=== PATIENT | male | born 1950 | race Caucasian/White ===

== ENCOUNTER 2017-12-31 18:13 | Inpatient (IN) ==
--- NOTE | 2017-12-31 19:11 | XR ---
EXAM DATE: 12/31/2017 6:43 PM EDT AGE/SEX: 67 years / Male INDICATIONS: Short of breath CLINICAL DATA: This is the patient's initial encounter. Patient reports that signs and symptoms have been present for 1 day and indicates a pain score of 0/10. MEDICAL/SURGICAL HISTORY: Non-responsive. Non-responsive. [place] [facility] [place]. . FINDINGS: The lungs are hyperinflated. A focal area of alveolar consolidation is not seen. There is some mild i ncrease interstitial markings seen in the mid lungs. This could be chronic. The heart size is normal. Significant effusions are not seen. CONCLUSION: Hyperinflated lungs. Electronically signed by: Nick Quiroz MD 12/31/2017 7:09 PM EDT
[2017-12-31 19:22] LABS: Baso % (Auto) 0.1 % (0.0-2.0); Hemoglobin 12.4 gm/dL (13.0-17.0); Lymph # (Auto) 0.1 th/mm3 (1.0-4.8); Lymph % (Auto) 1.8 % (9.0-44.0); Mean Corpuscular Hemoglobin 30.2 pg (27.0-34.0); Mean Corpuscular Volume 97.6 fL (80.0-100.0); Mean Platelet Volume 9.9 fL (7.0-11.0); Mono # (Auto) 0.7 th/mm3 (0.0-0.9); Mono % (Auto) 8.9 % (0.0-8.0); Neut # (Auto) 7.4 th/mm3 (1.8-7.7); Neut % (Auto) 89.2 % (16.0-70.0); Platelet Count 218 th/mm3 (150-450); Red Cell Distribution Width 13.7 % (11.6-17.2); White Blood Count 8.3 th/mm3 (4.0-11.0)
[2017-12-31 19:27] LABS: Mean Corpuscular HGB Conc 30.9 % (32.0-36.0)
[2017-12-31 19:29] LABS: Bilirubin,Urine Negative (Negative); Clarity,Urine Clear (Clear); Color,Urine Yellow (Yellw/Straw); Glucose,Urine (UA) Negative (Negative); Hyaline Casts,Urine 3 /lpf (0-3); Leukocyte Esterase,Urine Negative (Negative); Mucus,Urine Few /lpf (Occasional); Nitrite,Urine Negative (Negative); Specific Gravity,Urine 1.014 (1.002-1.035); Squamous Epithelial Cell,Urine <1 /hpf (0-5)
--- NOTE | 2017-12-31 19:37 | ED ---
HPI General Chief complaint: Respiratory Symptoms Stated complaint: SOB Time Seen by Provider: 12/31/17 18:43 History of Present Illness HPI narrative: 67-year-old male with a history of COPD, CHF, hypertension, anxiety, depression is brought to the emergency department from [facility] facility for evaluation of altered mental status and shortness of breath. Per EMS report [facility] staff called EMS with complaint of altered mental status. Per EMS report the patient's Xanax prescription dose was increased today and he has had increased lethargy and fatigue which is why the staff called. The patient is complaining of worsening shortness of breath over the past 3-4 days and he requested EMS to bring him to the hospital for evaluation. The patient is chronically on 3 L of oxygen therapy due to severe COPD. He does state that he is having worse shortness of breath than he typically does and feels dehydrated. He is awake, alert and oriented x4. He denies any chest pain, lightheadedness, dizziness, nausea, vomiting, swelling of the extremities, abdominal pain, fever, chills, cough or cold symptoms. No other complaints. Related Data Home Medications Medication Instructions Recorded Confirmed acetaminophen [Pain Relief 8HR] 650 mg PO Q4H PRN 12/31/17 12/31/17 albuterol sulfate 2.5 mg INHALATION Q6H PRN 12/31/17 12/31/17 alprazolam [Xanax] 0.5 mg PO Q6H PRN 12/31/17 12/31/17 ascorbic acid (vitamin C) [Vitamin 500 mg PO DAILY 12/31/17 12/31/17 C] aspirin 325 mg PO DAILY 12/31/17 12/31/17 bisacodyl [Dulcolax (bisacodyl)] 10 mg MD DAILY PRN 12/31/17 12/31/17 diphenhydramine HCl [Benadryl] 25 mg PO Q4-6H PRN 12/31/17 12/31/17 ipratropium-albuterol 3 ml INHALATION Q6-8H PRN 12/31/17 12/31/17 levothyroxine [Synthroid] 25 mcg PO DAILY 12/31/17 12/31/17 losartan 25 mg PO DAILY 12/31/17 12/31/17 mirtazapine 15 mg PO DAILY 12/31/17 12/31/17 nystatin 1 applic TOPICAL BID 12/31/17 12/31/17 potassium chloride 10 meq PO DAILY 12/31/17 12/31/17 prednisone 10 mg PO DAILY 12/31/17 12/31/17 vit A palm,D3 in cod liver oil 1 tab PO DAILY 12/31/17 12/31/17 [Cod Liver Oil plus Umer and D3] Allergies Allergy/AdvReac Type Severity Reaction Status Date / Time metoprolol Allergy Unknown Bradycardia Unverified 11/04/16 20:03 Review of Systems ROS: all other systems reviewed are negative [facility] Social History Social History Smoking Status: Former smoker How Often Do You Have a Drink Containing Alcohol: Never Recent Travel in [facility] within the Last 8 Weeks: No Recent Out of Country Travel within the Last 8 Weeks: No Immunization History Tetanus Immunization: Unsure Exam Narrative Exam Narrative: GENERAL: Cachectic chronically ill appearing male patient in no acute distress. SKIN: Warm and dry. HEAD: Normocephalic and atraumatic. EYES: No injection, drainage, or hyphema noted. PERRLA. EOMI. ENT: No nasal drainage noted. Oropharynx is clear. NECK: Supple and the trachea is midline. CARDIOVASCULAR: Regular rate and rhythm. RESPIRATORY: Breath sounds are equal bilaterally with no accessory muscle use, wheezing, rhonchi, or crackles. GASTROINTESTINAL: Abdomen is soft, non-tender, and nondistended. MUSCULOSKELETAL: No obvious deformities, swelling, cyanosis, or ecchymosis is present throughout the upper and lower extremities. Patient has full range of motion without any signs of neurovascular compromise. Distal pulses are 2+ throughout. NEUROLOGICAL: Awake, alert, and oriented. Normal speech and gait. Cranial nerves are grossly intact. Course Initial Documented Vital Signs Temperature 98.1 F 12/31/17 18:40 Pulse Rate 96 H 12/31/17 18:40 Respiratory Rate 21 12/31/17 18:40 Blood Pressure 183/74 H 12/31/17 18:40 Pulse Oximetry 96 12/31/17 18:40 Last Documented Vital Signs Temperature 98.6 F 01/02/18 08:00 Pulse Rate 66 01/02/18 08:00 Respiratory Rate 10 L 01/02/18 08:00 Blood Pressure 85/46 L 01/02/18 08:00 Pulse Oximetry 100 01/02/18 08:00 Critical Care Time Critical Care Time: Yes Total Critical Care Time: 35 Attestation: Aggregate critical care time was [-] minutes. Time to perform other separately billable procedures was not included in the critical care time. My time did not include minutes spent treating any other patients simultaneously or on activities that did not directly contribute to the patient' s treatment. The services I provided to this patient were to treat and/or prevent clinically significant deterioration that could result in: Respiratory arrest, I provided critical care services requiring my management, as noted below: Chart data review, documentation time, medication orders and management, vital sign assessments/reviewing monitor data, ordering and reviewing lab tests, ordering and interpreting/reviewing x-rays and diagnostic studies, care of the patient and discussion of the patient with the admitting physicians. Medical Decision Making MDM Narrative Medical decision making narrative: 67-year-old male is brought to the emergency department from his senior care facility for evaluation of worsening shortness of breath over the last 3-4 days. Patient is afebrile, vital signs are stable. IV access is obtained, labs were drawn throat. Patient is placed on cardiac telemetry and pulse oximetry monitoring. Patient administered DuoNeb x1. CBC is unremarkable. Coags are unremarkable. CMP is unremarkable. Troponin is less than 0.02. Urinalysis unremarkable. Head CT is negative. Chest x-ray shows hyperinflated lungs, otherwise unremarkable. Patient reassessed and he is still reporting dyspnea. He does appear to now have some work of breathing that was not present on earlier evaluation. CTPA and abg ordered. Abg shows uncompensated respiratory acidosis with CO2 retention. Patient placed on bipap. Care of patient signed out to Dr. Sanchez my attending physician. 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 Medical Screen Exam Complete: Yes Emergency Medical Condition: Yes Differential Diagnosis Differential Diagnosis: COPD exacerbation versus pneumonia versus CHF exacerbation versus PE Lab Data Result diagrams: 12/31/17 18:45 12/31/17 18:45 Lab Results 12/31/17 12/31/17 12/31/17 Range/Units 18:45 18:45 18:45 WBC 8.3 (4.0-11.0) th/mm3 RBC 4.10 L (4.50-5.90) mil/mm3 Hgb 12.4 L (13.0-17.0) gm/dL Hct 40.0 (39.0-51.0) % MCV 97.6 (80.0-100.0) fL MCH 30.2 (27.0-34.0) pg MCHC 30.9 L (32.0-36.0) % RDW 13.7 (11.6-17.2) % Plt Count 218 (150-450) th/mm3 MPV 9.9 (7.0-11.0) fL Neut % (Auto) 89.2 H (16.0-70.0) % Lymph % (Auto) 1.8 L (9.0-44.0) % [place] % (Auto) 8.9 H (0.0-8.0) % Eos % (Auto) 0.0 (0.0-4.0) % Baso % (Auto) 0.1 (0.0-2.0) % Neut # (Auto) 7.4 (1.8-7.7) th/mm3 Lymph # (Auto) 0.1 L (1.0-4.8) th/mm3 [place] # (Auto) 0.7 (0.0-0.9) th/mm3 Eos # (Auto) 0.0 (0.0-0.4) th/mm3 Baso # (Auto) 0.0 (0.0-0.2) th/mm3 WBC Differential . Differential Comment Auto diff final PT 10.1 (9.8-11.6) sec INR 1.0 Ratio APTT 26.8 (24.3-30.1) sec Puncture Site Patient Temperature O2 Saturation (90-100) % ABG pH (7.380-7.420) ABG pCO2 (38-42) mmHg ABG pO2 (61-120) mmHg ABG HCO3 (22-26) mmol/L ABG O2 Content (12.0-20.0) Vol % ABG Base Excess (-2-2) mmol/L ABG Methemoglobin (0-2) % Randy Test Hemoglobin (12.0-16.0) G/DL Carboxyhemoglobin (0-4) % O2 Delivery Device Liter Flow L/M Vent Setting Inspired O2 % Critical Value Sodium 135 L (136-145) meq/L Potassium 5.1 (3.5-5.1) meq/L Chloride 91 L (98-107) meq/L Carbon Dioxide 39.9 H (21.0-32.0) meq/L Anion Gap 4 L (5-15) meq/L BUN 25 H (7-18) mg/dL Creatinine 0.64 (0.60-1.30) mg/dL Estimated GFR Greater than 89 (>89) mL/min Random Glucose 103 (74-106) mg/dL Calcium 9.4 (8.5-10.1) mg/dL Total Bilirubin 0.3 (0.2-1.0) mg/dL AST 23 (15-37) U/L ALT 27 (12-78) U/L Alkaline Phosphatase 67 (45-117) U/L Troponin I Less than 0.02 L (0.02-0.05) ng/mL B-Natriuretic Peptide (0-100) pg/mL Total Protein 7.7 (6.4-8.2) g/dL Albumin 3.6 (3.4-5.0) g/dL Urine Color (Yellw/Straw) Urine Clarity (Clear) Urine pH (5.0-8.5) Ur Specific [place] (1.002-1.035) Urine Protein (Neg-Trace) mg/dL Urine Glucose (UA) (Negative) mg/dL Urine Ketones (Negative) mg/dL Urine Occult Blood (Negative) Urine Nitrate (Negative) Urine Bilirubin (Negative) Urine Urobilinogen (Less than 2) mg/dL Ur Leukocyte Esterase (Negative) Urine RBC (0-3) /hpf Urine WBC (0-5) /hpf Ur Squamous Epith Cells (0-5) /hpf Hyaline Casts (0-3) /lpf Urine Mucus (Occasional) /lpf Micro UA Comment Ur Microscopic Review Urine Culture Comments Nasal Screen MRSA (PCR) (Negative) 12/31/17 12/31/17 12/31/17 Range/Units 18:45 18:51 21:50 WBC (4.0-11.0) th/mm3 RBC (4.50-5.90) mil/mm3 Hgb (13.0-17.0) gm/dL Hct (39.0-51.0) % MCV (80.0-100.0) fL MCH (27.0-34.0) pg MCHC (32.0-36.0) % RDW (11.6-17.2) % Plt Count (150-450) th/mm3 MPV (7.0-11.0) fL Neut % (Auto) (16.0-70.0) % Lymph % (Auto) (9.0-44.0) % [place] % (Auto) (0.0-8.0) % Eos % (Auto) (0.0-4.0) % Baso % (Auto) (0.0-2.0) % Neut # (Auto) (1.8-7.7) th/mm3 Lymph # (Auto) (1.0-4.8) th/mm3 [place] # (Auto) (0.0-0.9) th/mm3 Eos # (Auto) (0.0-0.4) th/mm3 Baso # (Auto) (0.0-0.2) th/mm3 WBC Differential Differential Comment PT (9.8-11.6) sec INR Ratio APTT (24.3-30.1) sec Puncture Site Left radial Patient Temperature 98.6 O2 Saturation 94 (90-100) % ABG pH 7.16 L* (7.380-7.420) ABG pCO2 124 H* (38-42) mmHg ABG pO2 90 (61-120) mmHg ABG HCO3 42 H (22-26) mmol/L ABG O2 Content 15.5 (12.0-20.0) Vol % ABG Base Excess 13.1 H (-2-2) mmol/L ABG Methemoglobin 1.0 (0-2) % Randy Test Present Hemoglobin 11.6 L (12.0-16.0) G/DL Carboxyhemoglobin 1.1 (0-4) % O2 Delivery Device Nasal cannula Liter Flow 3.00 L/M Vent Setting Inspired O2 % Critical Value Yes Sodium (136-145) meq/L Potassium (3.5-5.1) meq/L Chloride (98-107) meq/L Carbon Dioxide (21.0-32.0) meq/L Anion Gap (5-15) meq/L BUN (7-18) mg/dL Creatinine (0.60-1.30) mg/dL Estimated GFR (>89) mL/min Random Glucose (74-106) mg/dL Calcium (8.5-10.1) mg/dL Total Bilirubin (0.2-1.0) mg/dL AST (15-37) U/L ALT (12-78) U/L Alkaline Phosphatase (45-117) U/L Troponin I (0.02-0.05) ng/mL B-Natriuretic Peptide 94 (0-100) pg/mL Total Protein (6.4-8.2) g/dL Albumin (3.4-5.0) g/dL Urine Color Yellow (Yellw/Straw) Urine Clarity Clear (Clear) Urine pH 5.0 (5.0-8.5) Ur Specific [place] 1.014 (1.002-1.035) Urine Protein 30 H (Neg-Trace) mg/dL Urine Glucose (UA) Negative (Negative) mg/dL Urine Ketones 20 (Negative) mg/dL Urine Occult Blood Small H (Negative) Urine Nitrate Negative (Negative) Urine Bilirubin Negative (Negative) Urine Urobilinogen Less than 2 (Less than 2) mg/dL Ur Leukocyte Esterase Negative (Negative) Urine RBC 2 (0-3) /hpf Urine WBC 1 (0-5) /hpf Ur Squamous Epith Cells <1 (0-5) /hpf Hyaline Casts 3 (0-3) /lpf Urine Mucus Few H (Occasional) /lpf Micro UA Comment Culture not ind Ur Microscopic Review Not Reportable Urine Culture Comments Culture not ind Nasal Screen MRSA (PCR) (Negative) 12/31/17 01/01/18 01/01/18 Range/Units 23:08 01:00 04:06 WBC (4.0-11.0) th/mm3 RBC (4.50-5.90) mil/mm3 Hgb (13.0-17.0) gm/dL Hct (39.0-51.0) % MCV (80.0-100.0) fL MCH (27.0-34.0) pg MCHC (32.0-36.0) % RDW (11.6-17.2) % Plt Count (150-450) th/mm3 MPV (7.0-11.0) fL Neut % (Auto) (16.0-70.0) % Lymph % (Auto) (9.0-44.0) % [place] % (Auto) (0.0-8.0) % Eos % (Auto) (0.0-4.0) % Baso % (Auto) (0.0-2.0) % Neut # (Auto) (1.8-7.7) th/mm3 Lymph # (Auto) (1.0-4.8) th/mm3 [place] # (Auto) (0.0-0.9) th/mm3 Eos # (Auto) (0.0-0.4) th/mm3 Baso # (Auto) (0.0-0.2) th/mm3 WBC Differential Differential Comment PT (9.8-11.6) sec INR Ratio APTT (24.3-30.1) sec Puncture Site Right radial Patient Temperature 98.6 O2 Saturation 90 (90-100) % ABG pH 7.27 L* (7.380-7.420) ABG pCO2 92 H* (38-42) mmHg ABG pO2 61 (61-120) mmHg ABG HCO3 40 H (22-26) mmol/L ABG O2 Content 15.1 (12.0-20.0) Vol % ABG Base Excess 13.0 H (-2-2) mmol/L ABG Methemoglobin 0.9 (0-2) % Randy Test Present Hemoglobin 12.0 (12.0-16.0) G/DL Carboxyhemoglobin 1.3 (0-4) % O2 Delivery Device Bipap Liter Flow L/M Vent Setting [id number] Inspired O2 35 % Critical Value Yes Sodium (136-145) meq/L Potassium (3.5-5.1) meq/L Chloride (98-107) meq/L Carbon Dioxide (21.0-32.0) meq/L Anion Gap (5-15) meq/L BUN (7-18) mg/dL Creatinine (0.60-1.30) mg/dL Estimated GFR (>89) mL/min Random Glucose (74-106) mg/dL Calcium (8.5-10.1) mg/dL Total Bilirubin (0.2-1.0) mg/dL AST (15-37) U/L ALT (12-78) U/L Alkaline Phosphatase (45-117) U/L Troponin I Less than 0.02 L (0.02-0.05) ng/mL B-Natriuretic Peptide (0-100) pg/mL Total Protein (6.4-8.2) g/dL Albumin (3.4-5.0) g/dL Urine Color (Yellw/Straw) Urine Clarity (Clear) Urine pH (5.0-8.5) Ur Specific [place] (1.002-1.035) Urine Protein (Neg-Trace) mg/dL Urine Glucose (UA) (Negative) mg/dL Urine Ketones (Negative) mg/dL Urine Occult Blood (Negative) Urine Nitrate (Negative) Urine Bilirubin (Negative) Urine Urobilinogen (Less than 2) mg/dL Ur Leukocyte Esterase (Negative) Urine RBC (0-3) /hpf Urine WBC (0-5) /hpf Ur Squamous Epith Cells (0-5) /hpf Hyaline Casts (0-3) /lpf Urine Mucus (Occasional) /lpf Micro UA Comment Ur Microscopic Review Urine Culture Comments Nasal Screen MRSA (PCR) Mrsa detected (Negative) 01/01/18 01/01/18 Range/Units 04:06 07:15 WBC (4.0-11.0) th/mm3 RBC (4.50-5.90) mil/mm3 Hgb (13.0-17.0) gm/dL Hct (39.0-51.0) % MCV (80.0-100.0) fL MCH (27.0-34.0) pg MCHC (32.0-36.0) % RDW (11.6-17.2) % Plt Count (150-450) th/mm3 MPV (7.0-11.0) fL Neut % (Auto) (16.0-70.0) % Lymph % (Auto) (9.0-44.0) % [place] % (Auto) (0.0-8.0) % Eos % (Auto) (0.0-4.0) % Baso % (Auto) (0.0-2.0) % Neut # (Auto) (1.8-7.7) th/mm3 Lymph # (Auto) (1.0-4.8) th/mm3 [place] # (Auto) (0.0-0.9) th/mm3 Eos # (Auto) (0.0-0.4) th/mm3 Baso # (Auto) (0.0-0.2) th/mm3 WBC Differential Differential Comment PT (9.8-11.6) sec INR Ratio APTT (24.3-30.1) sec Puncture Site Right radial Patient Temperature 98.6 O2 Saturation 93 (90-100) % ABG pH 7.26 L* (7.380-7.420) ABG pCO2 99 H* (38-42) mmHg ABG pO2 77 (61-120) mmHg ABG HCO3 43 H (22-26) mmol/L ABG O2 Content 15.7 (12.0-20.0) Vol % ABG Base Excess 15.8 H (-2-2) mmol/L ABG Methemoglobin 1.3 (0-2) % Randy Test Present Hemoglobin 12.0 (12.0-16.0) G/DL Carboxyhemoglobin 1.4 (0-4) % O2 Delivery Device Bipap Liter Flow L/M Vent Setting [id number] Inspired O2 40 % Critical Value Yes Sodium (136-145) meq/L Potassium (3.5-5.1) meq/L Chloride (98-107) meq/L Carbon Dioxide (21.0-32.0) meq/L Anion Gap (5-15) meq/L BUN (7-18) mg/dL Creatinine (0.60-1.30) mg/dL Estimated GFR (>89) mL/min Random Glucose (74-106) mg/dL Calcium (8.5-10.1) mg/dL Total Bilirubin (0.2-1.0) mg/dL AST (15-37) U/L ALT (12-78) U/L Alkaline Phosphatase (45-117) U/L Troponin I Cancelled (0.02-0.05) ng/mL B-Natriuretic Peptide (0-100) pg/mL Total Protein (6.4-8.2) g/dL Albumin (3.4-5.0) g/dL Urine Color (Yellw/Straw) Urine Clarity (Clear) Urine pH (5.0-8.5) Ur Specific [place] (1.002-1.035) Urine Protein (Neg-Trace) mg/dL Urine Glucose (UA) (Negative) mg/dL Urine Ketones (Negative) mg/dL Urine Occult Blood (Negative) Urine Nitrate (Negative) Urine Bilirubin (Negative) Urine Urobilinogen (Less than 2) mg/dL Ur Leukocyte Esterase (Negative) Urine RBC (0-3) /hpf Urine WBC (0-5) /hpf Ur Squamous Epith Cells (0-5) /hpf Hyaline Casts (0-3) /lpf Urine Mucus (Occasional) /lpf Micro UA Comment Ur Microscopic Review Urine Culture Comments Nasal Screen MRSA (PCR) (Negative) Imaging Data Radiologist's impression: Chest X-Ray 12/31/17 18:43 CONCLUSION: Hyperinflated lungs. Head CT 12/31/17 18:43 CONCLUSION: No acute intracranial abnormality is seen. . Chest CTA 01/01/18 00:08 CONCLUSION: 1. Negative for pulmonary embolus. 2. Severe emphysema. 3. Peribronchial thickening, especially at the lung bases with distal airway disease. Differential diagnosis includes chronic atypical mycobacterial disease. Chest X-Ray 01/02/18 06:00 CONCLUSION: Hyperinflation with emphysema and parenchymal scarring, stable. Heart size within normal limits. Discharge Plan Discharge Disposition Patient Disposition: 30 Still Patient Discharge Condition Condition: Stable Discharge Order Discharge Orders: Discharge Order (Routine); Ordered 01/02/18 Ordered By: Igor Rangel Discharge Details Diagnosis: Respiratory failure, End stage COPD Physicians Team ED Provider: Reena Sanchez ED Midlevel Provider: Amanda Holbrook Primary Care Provider: Mahogany Riley Attending Provider: Igor Rangel Other Providers: Johnathan Mann ; Duke Leslie Discharge Interventions Interventions: ED Discharge Assessment Last Done: 01/01/18 00:43 Vital Signs Last Done: 12/31/17 23:43 Status ED Status: Left Department Discharge Information Discharge Date/Time: 01/01/18 00:52
[2017-12-31 19:44] LABS: Alanine Aminotransferase 27 U/L (12-78); Albumin 3.6 g/dL (3.4-5.0); Anion Gap 4 meq/L (5-15); Aspartate Aminotransferase 23 U/L (15-37); Blood Urea Nitrogen 25 mg/dL (7-18); Calcium 9.4 mg/dL (8.5-10.1); Carbon Dioxide 39.9 meq/L (21.0-32.0); Chloride 91 meq/L (98-107); Glomerular Filtration Rate Greater Than 89 mL/min (>89); Glucose,Random 103 mg/dL (74-106); Potassium 5.1 meq/L (3.5-5.1); Sodium 135 meq/L (136-145)
[2017-12-31 19:45] LABS: Activated Partial Thrombo Time 26.8 sec (24.3-30.1); Prothrombin Time 10.1 sec (9.8-11.6)
[2017-12-31 19:48] LABS: Alkaline Phosphatase 67 U/L (45-117); Total Protein 7.7 g/dL (6.4-8.2)
--- NOTE | 2017-12-31 20:02 | CT ---
EXAM DATE: 12/31/2017 6:54 PM EDT AGE/SEX: 67 years / Male INDICATIONS: Altered mental status. CLINICAL DATA: This is the patient's initial encounter. Patient reports that signs and symptoms have been present for 1 day and indicates a pain score of 0/10. MEDICAL/SURGICAL HISTORY: Chronic obstructive pulmonary disease. Cardiovascular disease. None. RADIATION DOSE: 56.35 CTDI (mGy) COMPARISON: No prior exams available for comparison. TECHNIQUE: CT of the head without contrast. Using automated exposure control and adjustment of the mA and/or kV according to patient size, radiation dose was kept as low as reasonably achievable to ob tain optimal diagnostic quality images. DICOM format image data is available electronically for revi ew and comparison. FINDINGS: Cerebrum: The ventricles are normal for age. No evidence of midline shift, mass lesion, hemorrhage or acute infarction. No extraaxial fluid collections are seen. Posterior Fossa: The cerebellum and brainstem are intact. The 4th ventricle is midline. The cerebe llopontine angle is unremarkable. Extracranial: The visualized portion of the orbits is intact. Skull: The calvaria is intact. No evidence of skull fracture. CONCLUSION: No acute intracranial abnormality is seen. . Electronically signed by: Nick Quiroz MD 12/31/2017 8:01 PM EDT
[2017-12-31] MEDS ORDERED: Sodium Chlor 0.9% Inj 500 ML IV.SIG SCH (22:00)
[2017-12-31 22:10] LABS: ABG Base Excess 13.1 mmol/L (-2-2); ABG PCO2 124 mmHg (38-42); ABG PO2 90 mmHg (61-120)
[2017-12-31 23:36] LABS: ABG PCO2 92 mmHg (38-42); ABG PO2 61 mmHg (61-120)
[2017-12-31] MEDS ORDERED: MethylPREDNISolone Sod Succinate Inj 125 MG/2 ML Vial IV.PUSH ONE (23:37)
[2018-01-01] MEDS ORDERED: Enoxaparin Inj 40 MG/0.4 ML Syringe SQ SCH
[2018-01-01] MEDS ORDERED: ALPRAZolam 0.5 MG Tablet PO PRN (00:03)
[2018-01-01] MEDS ORDERED: Acetaminophen 325 MG Tablet PO PRN (00:03)
[2018-01-01] MEDS ORDERED: Bisacodyl 10 MG Supp RECTAL PRN ×2 (00:04→10:05)
[2018-01-01] MEDS ORDERED: Temazepam 15 MG Capsule PO PRN (00:04)
[2018-01-01] MEDS ORDERED: Morphine Inj 4 MG/ML Vial IV.PUSH PRN (00:04)
--- NOTE | 2018-01-01 00:09 | P.HPCC ---
History of Present Illness Primary Care Physician: Mahogany Riley MD History of Present Illness: 67-year-old male with a history of COPD, CHF, hypertension, anxiety, depression is brought to the emergency department from [facility] for evaluation of altered mental status and shortness of breath. Per EMS report [facility] staff called EMS with complaint of altered mental status. Per EMS report the patient's Xanax prescription dose was increased today and he has had increased lethargy and fatigue which is why the staff called. The patient is complaining of worsening shortness of breath over the past 3-4 days and he requested EMS to bring him to the hospital for evaluation. The patient is chronically on 3 L of oxygen therapy due to severe COPD. He does state that he is having worse shortness of breath than he typically does and feels dehydrated. He is awake, alert and oriented x4. He denies any chest pain, lightheadedness, dizziness, nausea, vomiting, swelling of the extremities , abdominal pain, fever, chills, cough or cold symptoms. No other complaints. Inpatient Certification: I certify that the inpatient services were ordered in accordance with Medicare regulations governing the order. This includes certification that hospital inpatient services are reasonable and necessary and in the case of services not specified as inpatient-only under 42 CFR 419.22(n), that they are appropriately provided as inpatient services in accordance to with the 2-midnight benchmark under 43 CFR 412.3(e) Estimated Total Length of Stay (Days): 5 Plans for Post Hospital Care: Not yet determined Review of Systems All other systems reviewed negative except as stated in HPI [facility] - History History Provided By: Patient - Medical History Medical History: Medical History (Last Updated 12/31/17 @ 18:43 by Juliann Waldrop) Anxiety COPD (chronic obstructive pulmonary disease) Depression Heart failure Hypertension Hypothyroidism Vitamin deficiency - Tobacco History Smoking Status: Former smoker - Alcohol History How Often Do You Have a Drink Containing Alcohol: Never - Travel History Recent Travel in the [place] Within the Last 8 Weeks: No Recent Travel Out of the Country Within the Last 8 Weeks: No - Immunization History Tetanus Immunization: Unsure Medications and Allergies Active Medications: Active Medications Alprazolam (Xanax) 0.5 mg PO Q6H PRN PRN Reason: Anxiety Ascorbic Acid (Vitamin C) 500 mg PO DAILY OLIVIA Aspirin (Aspirin) 325 mg PO DAILY [facility] Diphenhydramine HCl (Benadryl) 25 mg PO Q4H PRN PRN Reason: Itching Sodium Chloride (Ns Inj) 500 mls @ 0 mls/hr IV.SIG BOLUS OLIVIA Last Infusion: 12/31/17 22:03 Dose: Infused Levothyroxine Sodium (Synthroid) 25 mcg PO DAILY OLIV[facility] Losartan Potassium (Cozaar) 25 mg PO DAILY [facility] Mirtazapine (Remeron) 15 mg PO DAILY [facility] Non-Formulary Medication (Acetaminophen [Pain Relief 8hr]) 650 mg PO Q4H PRN PRN Reason: pain Non-Formulary Medication (Vit A Palm,D3 In Cod Liver Oil [Cod Liver Oil Plus Dayna And D3]) 1 tab PO DAILY [facility] Nystatin (Mycostatin Cream) 1 applicatio TOPICAL BID OLIVIA Potassium Chloride (Klor-Con 10) 10 meq PO DAILY OLIVIA Allergies Allergy/AdvReac Type Severity Reaction Status Date / Time metoprolol Allergy Unknown Bradycardia Unverified 11/04/16 20:03 Home Medications Medication Instructions Recorded Confirmed Type acetaminophen [Pain Relief 8HR] 650 mg PO Q4H PRN 12/31/17 12/31/17 History albuterol sulfate 2.5 mg INHALATION Q6H PRN 12/31/17 12/31/17 History alprazolam [Xanax] 0.5 mg PO Q6H PRN 12/31/17 12/31/17 History ascorbic acid (vitamin C) [Vitamin 500 mg PO DAILY 12/31/17 12/31/17 History C] aspirin 325 mg PO DAILY 12/31/17 12/31/17 History bisacodyl [Dulcolax (bisacodyl)] 10 mg SC DAILY PRN 12/31/17 12/31/17 History diphenhydramine HCl [Benadryl] 25 mg PO Q4-6H PRN 12/31/17 12/31/17 History ipratropium-albuterol 3 ml INHALATION Q6-8H PRN 12/31/17 12/31/17 History levothyroxine [Synthroid] 25 mcg PO DAILY 12/31/17 12/31/17 History losartan 25 mg PO DAILY 12/31/17 12/31/17 History mirtazapine 15 mg PO DAILY 12/31/17 12/31/17 History nystatin 1 applic TOPICAL BID 12/31/17 12/31/17 History potassium chloride 10 meq PO DAILY 12/31/17 12/31/17 History prednisone 10 mg PO DAILY 12/31/17 12/31/17 History vit A palm,D3 in cod liver oil 1 tab PO DAILY 12/31/17 12/31/17 History [Cod Liver Oil plus Dayna and D3] Results - Labs CBC & Chem 7: 12/31/17 18:45 12/31/17 18:45 Labs: Short CBC 12/31/17 Range/Units 18:45 WBC 8.3 (4.0-11.0) th/mm3 Hgb 12.4 L (13.0-17.0) gm/dL Hct 40.0 (39.0-51.0) % Plt Count 218 (150-450) th/mm3 BMP 12/31/17 18:45 Sodium 135 L Potassium 5.1 Chloride 91 L Carbon Dioxide 39.9 H BUN 25 H Creatinine 0.64 Calcium 9.4 Cardiac Enzymes 12/31/17 Range/Units 18:45 Troponin I Less than 0.02 L (0.02-0.05) ng/mL Liver Function 12/31/17 Range/Units 18:45 Total Bilirubin 0.3 (0.2-1.0) mg/dL AST 23 (15-37) U/L ALT 27 (12-78) U/L Alkaline Phosphatase 67 (45-117) U/L Albumin 3.6 (3.4-5.0) g/dL Urine 12/31/17 Range/Units 18:51 Urine Color Yellow (Yellw/Straw) Urine Clarity Clear (Clear) Urine pH 5.0 (5.0-8.5) Ur Specific [place] 1.014 (1.002-1.035) Urine Protein 30 H (Neg-Trace) mg/dL Urine Glucose (UA) Negative (Negative) mg/dL - Imaging Impressions Chest X-Ray 12/31/17 18:43 CONCLUSION: Hyperinflated lungs. Head CT 12/31/17 18:43 CONCLUSION: No acute intracranial abnormality is seen. . Exam Vital signs: Vital Signs 12/31/17 18:40 12/31/17 18:43 12/31/17 22:51 Temperature 98.1 F Pulse Rate 96 H 84 Respiratory Rate 21 Blood Pressure 183/74 H Pulse Oximetry 96 96 98 12/31/17 23:40 12/31/17 23:43 Temperature Pulse Rate 102 H Respiratory Rate 24 Blood Pressure 154/65 H Pulse Oximetry 95 90 L Intake & Output 12/31/17 12/31/17 01/01/18 06:59 18:59 06:59 Intake Total 500 / 500 Balance 500 / 500 Weight 58.967 kg Intake: IV 500 / 500 NS Inj 500 ML @ Wide Open IV. 500 / 500 SIG BOLUS OLIVIA Rx#:[id number] - Constitutional moderate distress, chronically ill appearing, disheveled - Routine HEENT Exam Head: Present: normocephalic, atraumatic Eye: Present: PERRL ENT: Present: mucous membranes moist - Routine Neck Exam Present: supple. Absent: JVD, carotid bruit - Routine Respiratory Exam Present: rhonchi, wheezes. Absent: stridor, crackles - Routine Cardiovascular Exam Present: RRR, S1, S2 - Routine Abdominal Exam Present: soft, normoactive bowel sounds. Absent: tenderness - Routine Extremities Exam Absent: cyanosis, clubbing, edema - Routine Skin Exam Present: intact. Absent: cyanosis, erythema - Routine Neurological Exam Present: alert, altered mental status Septic Shock Reassessment Septic shock perfusion: reassessment completed Caprini VTE Risk Assessment Caprini VTE Risk Assessment: Moderate/High Risk (score >= 2) Caprini Risk Assessment Model: Point Value = 1 Point Value = 2 Point Value = 3 Point Value = 5 Age 41-60 Minor surgery BMI > 25 kg/m2 Swollen legs Varicose veins or History of unexplained or recurrent spontaneous Oral contraceptives or hormone replacement Sepsis (< 1 month) Serious lung disease, including pneumonia (< 1 month) Abnormal pulmonary function Acute myocardial infarction Congestive heart failure (< 1 month) History of inflammatory bowel disease Medical patient at bed rest Age 61-74 Arthroscopic surgery Major open surgery (> 45 min) Laparoscopic surgery (> 45 min) Malignancy Confined to bed (> 72 hours) Immobilizing plaster cast Central venous access Age >= 75 History of VTE Family history of VTE Factor V Leiden Prothrombin [id number] Lupus anticoagulant Anticardiolipin antibodies Elevated serum homocysteine Heparin-induced thrombocytopenia Other congenital or acquired thrombophilia Stroke (< 1 month) Elective arthroplasty Hip, pelvis, or leg fracture Acute spinal cord injury (< 1 month) Prophylaxis Regimen: Total Risk Factor Score Risk Level Prophylaxis Regimen 0-1 Low Early ambulation 2 Moderate Order ONE of the following: *Sequential Compression Device (SCD) *Heparin 5000 units SQ BID 3-4 Higher Order ONE of the following medications: *Heparin 5000 units SQ TID *Enoxaparin/Lovenox 40 mg SQ daily (WT < 150 kg, CrCl > 30 mL/min) *Enoxaparin/Lovenox 30 mg SQ daily (WT < 150 kg, CrCl > 10-29 mL/min) *Enoxaparin/Lovenox 30 mg SQ BID (WT < 150 kg, CrCl > 30 mL/min) AND/OR *Sequential Compression Device (SCD) 5 or more Highest Order ONE of the following medications: *Heparin 5000 units SQ TID (Preferred with Epidurals) *Enoxaparin/Lovenox 40 mg SQ daily (WT < 150 kg, CrCl > 30 mL/min) *Enoxaparin/Lovenox 30 mg SQ daily (WT < 150 kg, CrCl > 10-29 mL/min) *Enoxaparin/Lovenox 30 mg SQ BID (WT < 150 kg, CrCl > 30 mL/min) AND *Sequential Compression Device (SCD) Assessment and Plan - Assessment and Plan Plan: Respiratory failure COPD exacerbation -IV steroids -DuoNeb scheduled and as needed -Empiric antibiotic -BiPAP as needed Anxiety -Xanax per home regimen Depression -Mirtazapine Hypertension -Losartan Hypothyroidism -Levothyroxine Vitamin deficiency -Vitamin C p.o. DVT GI prophylaxis -Teds SCDs -Subcu Lovenox -Pepcid 35 minutes of critical care
[2018-01-01] MEDS ORDERED: Azithromycin Inj 500 MG in Sodium Chlor 0.9% Inj 250 ML IV.SIG SCH (01:00)
--- NOTE | 2018-01-01 01:19 | CT ---
EXAM DATE: 01/01/2018 12:08 AM EDT AGE/SEX: 67 years / Male INDICATIONS: Shortness of breath. CLINICAL DATA: This is the patient's initial encounter. Patient reports that signs and symptoms have been present for 1 day and indicates a pain score of 0/10. MEDICAL/SURGICAL HISTORY: Chronic obstructive pulmonary disease. Congestive heart failure. Hypert ension. None. RADIATION DOSE: 7.96 CTDI (mGy) COMPARISON: No prior exams available for comparison. TECHNIQUE: Volumetric scanning was performed using a multi-row detector CT scanner during bolus infu briana of 70 ml Omnipaque 350 (iohexol) nonionic water-soluble contrast as a single exam dose. The winnie a was post processed with a variety of visualization algorithms including full volume maximum intensi ty projection and sliding thin slab reformation. Using automated exposure control and adjustment of the mA and/or kV according to patient size, radiation dose was kept as low as reasonably achievable t o obtain optimal diagnostic quality images. DICOM format image data is available electronically for review and comparison. FINDINGS: No filling defects are seen in the pulmonary arteries to suggest pulmonary embolic disease. There is severe underlying emphysema. There is peribronchial thickening especially at the lung bases as well as distal airway disease characterized by bronchiolectasis and mucoid plugging of distal airw ays. No significant consolidation. No pleural or pericardial effusion. No pneumothorax. Borderline enlarged mediastinal lymph nodes. CONCLUSION: 1. Negative for pulmonary embolus. 2. Severe emphysema. 3. Peribronchial thickening, especially at the lung bases with distal airway disease. Differential d iagnosis includes chronic atypical mycobacterial disease. Electronically signed by: Akbar Roche MD 01/01/2018 1:18 AM EDT
[2018-01-01] MEDS: MethylPREDNISolone Sod Succinate Inj 40 MG/ML Vial IV.PUSH SCH ×2 (01:29→06:07)
[2018-01-01] MEDS ORDERED: Chlorhexidine Gluconate 2% 1 Pack (2 Cloths) TOPICAL PRN (04:00)
[2018-01-01] MEDS ORDERED: Chlorhexidine Gluconate 2% 1 Pack (2 Cloths) TOPICAL SCH (04:00)
[2018-01-01 07:52] LABS: ABG Base Excess 15.8 mmol/L (-2-2); ABG PCO2 99 mmHg (38-42); ABG PO2 77 mmHg (61-120)
[2018-01-01] MEDS ORDERED: Senna/Docusate Sodium 8.6/50 MG Tablet PO SCH (09:00)
[2018-01-01] MEDS ORDERED: Aspirin 325 MG Tablet PO SCH (09:00)
[2018-01-01] MEDS ORDERED: COD LIVER OIL PO SCH (09:00)
[2018-01-01] MEDS ORDERED: [UNRECOGNIZED DRUG - OTHER] PO SCH (09:00)
[2018-01-01] MEDS ORDERED: Famotidine PF Inj 20 MG/2 ML Vial IV.PUSH SCH (09:00)
[2018-01-01] MEDS ORDERED: Mirtazapine 15 MG Tablet PO SCH (09:00)
[2018-01-01] MEDS ORDERED: Ascorbic Acid 500 MG Tablet PO SCH (09:00)
--- NOTE | 2018-01-01 09:25 | P.CONPAL ---
Consult Service: Palliative Care Requesting Physician: Teodoro Law Reason for Consult: a. To assist with evaluation and management of symptoms including: Dyspnea, anxiety b. To assist medical decision maker(s) with: better understanding of current medical conditions; weighing benefits/burdens of medical treatment options; making medical treatment decisions. Primary Care Provider: Mahogany Riley MD History of Present Illness History of Present Illness: This is a 67-year-old male brought in to [facility] from [facility] last night with altered mental status and dyspnea. He reports, dose of Xanax had been increased yesterday and the staff felt that he was too lethargic so called 911. On arrival, EMS evaluated the patient who stated that he was more short of breath and wanted to come to the hospital. He was summarily transferred here where the physicians advised him that he was severely acidotic respiratory failure and offered intubation. He firmly refused stating he did not wish resuscitation in any form, cardiac or pulmonary but would tolerate a BiPAP mask. The BiPAP settings were adjusted downward to improve his tolerance but he states it is still uncomfortable. He has been very clear about his wishes states that he is aware that without intubation and mechanical ventilation he would likely that is an acceptable option for him due to his poor quality of life. He is requesting to have the BiPAP removed and be placed on 2 L nasal cannula with medications for comfort. His sister is at bedside and he has discussed this with her. He is still alert and very oriented, very clear about his wishes. She is in agreement with his decision. Clinical findings on admission * Electrocardiogram shows atrial fibrillation with rapid ventricular response. * Chest x-ray shows hyperinflated lungs without focal area of alveolar consolidation * CT of the head without contrast shows no acute intracranial abnormality. * No pulmonary embolus, severe emphysema, peribronchial thickening especially at the lung bases with distal airway disease including differential diagnosis of chronic, atypical, mycobacterial disease. * Labs on admission WBC 8.3, hemoglobin 12.4 hematocrit 40.0, platelets 218, sodium 135, potassium 1, BUN, creatinine 0.64, troponin less than 0.02, B natruretic peptide 94. * ABG showed pH 7.16, PCO2 124, PaO2 90, HCO3 42, base excess +13.1, saturation 94% on 3 L. This is an elderly, cachectic male looking much older than his stated age lying in bed on BiPAP with his sister at bedside. Lung sounds are extremely diminished, he is tachypneic and in mild respiratory distress. Consents were completed for withdrawal of BiPAP after discussion with Dr. Gray. His dyspnea is severe, constant, improved by oxygen and benzodiazepines, worsened by activity. He becomes anxious as the dyspnea exacerbates and describes it as severe, intermittent, waxing and waning, improved by anxiolytics. Past medical history COPD, O2 dependent Spontaneous pneumothorax 2012 Hypertension SVT Paroxysmal atrial fibrillation Hypothyroidism Past surgical history Left cataract surgery with lens implantation Family history Father and 2 brothers coronary artery disease status post CABG in their 50-60s Social history Extensive smoking history up to 2 packs/day, quit 2012. No alcohol use Occasional marijuana use. . Function/Cognitive Trajectory: Patient has been residing in a assisted facility as he is no longer able to take care of himself with progressively escalating oxygen needs. He requires assistance with all ADLs and has minimal activity tolerance.. . Review of Systems Constitutional: Reports weight loss Cardiovascular: Reports shortness of breath Respiratory: Reports cough, Reports shortness of breath Musculoskeletal: Reports decreased muscle mass Psychiatric: Reports anxiety PMFSH - History History Provided By: Patient - Medical History Medical History: Medical History (Last Reviewed 01/01/18 @ 07:51 by Diane Hernandez) Anxiety COPD (chronic obstructive pulmonary disease) Depression Heart failure Hypertension Hypothyroidism Vitamin deficiency - Tobacco History Smoking Status: Former smoker - Alcohol History How Often Do You Have a Drink Containing Alcohol: Never - Travel History Recent Travel in the [place] Within the Last 8 Weeks: No Recent Travel Out of the Country Within the Last 8 Weeks: No - Immunization History Tetanus Immunization: Unsure Medications and Allergies Active Medications: Active Medications Acetaminophen (Tylenol) 650 mg PO Q4H PRN PRN Reason: pain Al Hydroxide/Mg Hydroxide (Milk Of David Liconstanza) 30 ml PO Q12H PRN PRN Reason: Mild Constipation Albuterol (Duoneb Neb (Mack)) 1 ampul NEB Q4HR NEB MACK Last Admin: 01/01/18 08:05 Dose: Not Given Albuterol (Albuterol Neb (Prn)) 2.5 mg NEB Q2HR NEB PRN PRN Reason: DYSPNEA Alprazolam (Xanax) 0.5 mg PO Q6H PRN PRN Reason: Anxiety Ascorbic Acid (Vitamin C) 500 mg PO DAILY [facility] Aspirin (Aspirin) 325 mg PO DAILY [facility] Bisacodyl (Dulcolax Supp) 10 mg RECTAL DAILY PRN PRN Reason: SEVERE CONSITIPATION Chlorhexidine Gluconate (Chlorhexidine 2% Cloth) 3 pack TOPICAL DAILY@0400 MACK Stop: 01/06/18 03:59 Last Admin: 01/01/18 06:08 Dose: 3 pack Chlorhexidine Gluconate (Chlorhexidine 2% Cloth) 3 pack TOPICAL DAILY@0400 PRN PRN Reason: Extra cloth needed Stop: 01/06/18 03:59 Diphenhydramine HCl (Benadryl) 25 mg PO Q4H PRN PRN Reason: Itching Enoxaparin Sodium (Lovenox Inj) 40 mg SQ Q24H [facility] Last Admin: 01/01/18 01:29 Dose: 40 mg Famotidine (Pepcid Pf Inj) 20 mg IV.PUSH Q12HR [facility] Sodium Chloride (Ns Inj) 500 mls @ 0 mls/hr IV.SIG BOLUS [facility] Last Infusion: 12/31/17 22:03 Dose: Infused Azithromycin 500 mg/ Sodium (Chloride) 250 mls @ 250 mls/hr IV.SIG Q24H [facility] Last Infusion: 01/01/18 03:30 Dose: Infused Ceftriaxone Sodium 2,000 mg/ (Sodium Chloride) 100 mls @ 200 mls/hr IV.SIG Q24H [facility] Last Infusion: 01/01/18 02:00 Dose: Infused Lactulose (Lactulose Liq) 30 ml PO DAILY PRN PRN Reason: SEVERE CONSITIPATION Levothyroxine Sodium (Synthroid) 25 mcg PO DAILY@0600 [facility] Last Admin: 01/01/18 06:07 Dose: 25 mcg Losartan Potassium (Cozaar) 25 mg PO DAILY [facility] Methylprednisolone Sodium Succinate (Solumedrol Inj) 40 mg IV.PUSH Q6H [facility] Last Admin: 01/01/18 06:07 Dose: 40 mg Mirtazapine (Remeron) 15 mg PO DAILY [facility] Morphine Sulfate (Morphine Inj) 2 mg IV.PUSH Q2H PRN PRN Reason: PAIN SCALE 6 TO 10 Nystatin (Mycostatin Cream) 1 applicatio TOPICAL BID [facility] Ondansetron HCl (Zofran Inj) 4 mg IV.PUSH Q6H PRN PRN Reason: NAUSEA OR VOMITING Senna/Docusate Sodium (Sylwia-Colace) 1 tab PO BID MACK Sennosides (Senokot) 17.2 mg PO Q12H PRN PRN Reason: Moderate Constipation Sodium Chloride (Ns Flush) 2 ml IV.FLUSH BID MACK Sodium Chloride (Ns Flush) 2 ml IV.FLUSH PRN PRN PRN Reason: FLUSH AFTER USING IV ACCESS Temazepam (Restoril) 15 mg PO HS PRN PRN Reason: INSOMNIA Allergies Allergy/AdvReac Type Severity Reaction Status Date / Time metoprolol Allergy Unknown Bradycardia Unverified 11/04/16 20:03 Home Medications Medication Instructions Recorded Confirmed Type acetaminophen [Pain Relief 8HR] 650 mg PO Q4H PRN 12/31/17 12/31/17 History albuterol sulfate 2.5 mg INHALATION Q6H PRN 12/31/17 12/31/17 History alprazolam [Xanax] 0.5 mg PO Q6H PRN 12/31/17 12/31/17 History ascorbic acid (vitamin C) [Vitamin 500 mg PO DAILY 12/31/17 12/31/17 History C] aspirin 325 mg PO DAILY 12/31/17 12/31/17 History bisacodyl [Dulcolax (bisacodyl)] 10 mg NV DAILY PRN 12/31/17 12/31/17 History diphenhydramine HCl [Benadryl] 25 mg PO Q4-6H PRN 12/31/17 12/31/17 History ipratropium-albuterol 3 ml INHALATION Q6-8H PRN 12/31/17 12/31/17 History levothyroxine [Synthroid] 25 mcg PO DAILY 12/31/17 12/31/17 History losartan 25 mg PO DAILY 12/31/17 12/31/17 History mirtazapine 15 mg PO DAILY 12/31/17 12/31/17 History nystatin 1 applic TOPICAL BID 12/31/17 12/31/17 History potassium chloride 10 meq PO DAILY 12/31/17 12/31/17 History prednisone 10 mg PO DAILY 12/31/17 12/31/17 History vit A palm,D3 in cod liver oil 1 tab PO DAILY 12/31/17 12/31/17 History [Cod Liver Oil plus Umer and D3] Advance Directives Living Will: No Healthcare Surrogate: No Power of Rack Puller: No Physical Exam Vital Signs: Vital Signs - 24 hr 12/31/17 18:40 12/31/17 18:43 12/31/17 22:51 Temperature 98.1 F Pulse Rate 96 H 84 Respiratory Rate 21 Blood Pressure 183/74 H Pulse Oximetry 96 96 98 12/31/17 23:40 12/31/17 23:43 01/01/18 00:40 Temperature Pulse Rate 102 H Respiratory Rate 24 Blood Pressure 154/65 H Pulse Oximetry 95 90 L 98 01/01/18 01:01 01/01/18 01:08 01/01/18 01:17 Temperature Pulse Rate 114 H Respiratory Rate 27 H Blood Pressure 161/67 H 158/71 H Pulse Oximetry 100 98 94 L 01/01/18 01:18 01/01/18 01:37 01/01/18 01:51 Temperature 98.6 F Pulse Rate 107 H 104 H 100 H Respiratory Rate 37 H Blood Pressure 158/71 H 168/71 H Pulse Oximetry 94 L 94 L 01/01/18 02:00 01/01/18 02:07 01/01/18 02:37 Temperature Pulse Rate 102 H 98 H 112 H Respiratory Rate 30 H 36 H 35 H Blood Pressure 170/71 H 146/65 H Pulse Oximetry 96 93 L 94 L 01/01/18 03:00 01/01/18 03:07 01/01/18 03:37 Temperature Pulse Rate 111 H 103 H 108 H Respiratory Rate 31 H 42 H 31 H Blood Pressure 154/65 H 154/67 H Pulse Oximetry 94 L 95 95 01/01/18 04:00 01/01/18 04:07 01/01/18 04:36 Temperature 98.4 F Pulse Rate 107 H 106 H 100 H Respiratory Rate 23 24 19 Blood Pressure 152/67 H Pulse Oximetry 95 96 96 01/01/18 04:37 01/01/18 06:00 01/01/18 07:48 Temperature Pulse Rate 111 H 94 H Respiratory Rate 25 H Blood Pressure 166/71 H Pulse Oximetry 96 90 L 01/01/18 08:04 Temperature Pulse Rate 107 H Respiratory Rate 17 Blood Pressure Pulse Oximetry I&O: Intake & Output 12/30/17 12/31/17 01/01/18 01/02/18 06:59 06:59 06:59 06:59 Intake Total 900 / 900 Balance 900 / 900 Weight 105 lb 9.623 oz Physical Exam: CONSTITUTIONAL/GENERAL: This is an elderly, cachectic, male patient lying in bed on BiPAP in mild distress TUBES/LINES/DRAINS: PIV SKIN: No jaundice, rashes, or lesions. Ecchymoses on upper extremities. No wounds seen anteriorly. Skin temperature appropriate. Not diaphoretic. HEAD: Atraumatic. Normocephalic. EYES: Pupils equal and round and reactive. Extraocular motions intact. No scleral icterus. No injection or drainage. Fundi not examined. ENT: Hearing grossly normal. Nose without bleeding or purulent drainage. Throat without visible erythema, exudates, masses, or lesions. NECK: Trachea midline. Supple, nontender. No palpable thyroid enlargement or nodularity. CARDIOVASCULAR: Irregular rhythm, tachycardic rate, no rub murmur or gallop. RESPIRATORY/CHEST: Extremely diminished breath sounds, no wheezes, rhonchi or crackles. Barrel chest. GASTROINTESTINAL: Abdomen soft, non-tender, nondistended. No hepato-splenomegaly , or palpable masses. No guarding. Bowel sounds present. GENITOURINARY: Without palpable bladder distension. Ocampo catheter in place. MUSCULOSKELETAL: Extremities without clubbing, cyanosis, or edema. No joint tenderness or effusion noted. No calf tenderness. No mottling or clubbing. LYMPHATICS: No palpable cervical or supraclavicular adenopathy. NEUROLOGICAL: Awake and alert. Motor and sensory grossly within normal limits. Follows commands. Cognitively sharp. Moves all extremities. PSYCHIATRIC: Mild anxiety. . Diagnostic Tests Laboratory: Laboratory Results - last 72 hr 12/31/17 12/31/17 12/31/17 18:45 18:45 18:45 WBC 8.3 RBC 4.10 L Hgb 12.4 L Hct 40.0 MCV 97.6 MCH 30.2 MCHC 30.9 L RDW 13.7 Plt Count 218 MPV 9.9 Neut % (Auto) 89.2 H Lymph % (Auto) 1.8 L [place] % (Auto) 8.9 H Eos % (Auto) 0.0 Baso % (Auto) 0.1 Neut # (Auto) 7.4 Lymph # (Auto) 0.1 L [place] # (Auto) 0.7 Eos # (Auto) 0.0 Baso # (Auto) 0.0 WBC Differential . Differential Comment Auto diff final PT 10.1 INR 1.0 APTT 26.8 Puncture Site Patient Temperature O2 Saturation ABG pH ABG pCO2 ABG pO2 ABG HCO3 ABG O2 Content ABG Base Excess ABG Methemoglobin Randy Test Hemoglobin Carboxyhemoglobin O2 Delivery Device Liter Flow Vent Setting Inspired O2 Critical Value Sodium 135 L Potassium 5.1 Chloride 91 L Carbon Dioxide 39.9 H Anion Gap 4 L BUN 25 H Creatinine 0.64 Estimated GFR Greater than 89 Random Glucose 103 Calcium 9.4 Total Bilirubin 0.3 AST 23 ALT 27 Alkaline Phosphatase 67 Troponin I Less than 0.02 L B-Natriuretic Peptide Total Protein 7.7 Albumin 3.6 Urine Color Urine Clarity Urine pH Ur Specific [place]win Urine Protein Urine Glucose (UA) Urine Ketones Urine Occult Blood Urine Nitrate Urine Bilirubin Urine Urobilinogen Ur Leukocyte Esterase Urine RBC Urine WBC Ur Squamous Epith Cells Hyaline Casts Urine Mucus Micro UA Comment Ur Microscopic Review Urine Culture Comments Nasal Screen MRSA (PCR) 12/31/17 12/31/17 12/31/17 18:45 18:51 21:50 WBC RBC Hgb Hct MCV MCH MCHC RDW Plt Count MPV Neut % (Auto) Lymph % (Auto) [place] % (Auto) Eos % (Auto) Baso % (Auto) Neut # (Auto) Lymph # (Auto) [place] # (Auto) Eos # (Auto) Baso # (Auto) WBC Differential Differential Comment PT INR APTT Puncture Site Left radial Patient Temperature 98.6 O2 Saturation 94 ABG pH 7.16 L* ABG pCO2 124 H* ABG pO2 90 ABG HCO3 42 H ABG O2 Content 15.5 ABG Base Excess 13.1 H ABG Methemoglobin 1.0 Randy Test Present Hemoglobin 11.6 L Carboxyhemoglobin 1.1 O2 Delivery Device Nasal cannula Liter Flow 3.00 Vent Setting Inspired O2 Critical Value Yes Sodium Potassium Chloride Carbon Dioxide Anion Gap BUN Creatinine Estimated GFR Random Glucose Calcium Total Bilirubin AST ALT Alkaline Phosphatase Troponin I B-Natriuretic Peptide 94 Total Protein Albumin Urine Color Yellow Urine Clarity Clear Urine pH 5.0 Ur Specific [place] 1.014 Urine Protein 30 H Urine Glucose (UA) Negative Urine Ketones 20 Urine Occult Blood Small H Urine Nitrate Negative Urine Bilirubin Negative Urine Urobilinogen Less than 2 Ur Leukocyte Esterase Negative Urine RBC 2 Urine WBC 1 Ur Squamous Epith Cells <1 Hyaline Casts 3 Urine Mucus Few H Micro UA Comment Culture not ind Ur Microscopic Review Not Reportable Urine Culture Comments Culture not ind Nasal Screen MRSA (PCR) 12/31/17 01/01/18 01/01/18 23:08 01:00 04:06 WBC RBC Hgb Hct MCV MCH MCHC RDW Plt Count MPV Neut % (Auto) Lymph % (Auto) [place] % (Auto) Eos % (Auto) Baso % (Auto) Neut # (Auto) Lymph # (Auto) [place] # (Auto) Eos # (Auto) Baso # (Auto) WBC Differential Differential Comment PT INR APTT Puncture Site Right radial Patient Temperature 98.6 O2 Saturation 90 ABG pH 7.27 L* ABG pCO2 92 H* ABG pO2 61 ABG HCO3 40 H ABG O2 Content 15.1 ABG Base Excess 13.0 H ABG Methemoglobin 0.9 Randy Test Present Hemoglobin 12.0 Carboxyhemoglobin 1.3 O2 Delivery Device Bipap Liter Flow Vent Setting [id number] Inspired O2 35 Critical Value Yes Sodium Potassium Chloride Carbon Dioxide Anion Gap BUN Creatinine Estimated GFR Random Glucose Calcium Total Bilirubin AST ALT Alkaline Phosphatase Troponin I Less than 0.02 L B-Natriuretic Peptide Total Protein Albumin Urine Color Urine Clarity Urine pH Ur Specific [place]win Urine Protein Urine Glucose (UA) Urine Ketones Urine Occult Blood Urine Nitrate Urine Bilirubin Urine Urobilinogen Ur Leukocyte Esterase Urine RBC Urine WBC Ur Squamous Epith Cells Hyaline Casts Urine Mucus Micro UA Comment Ur Microscopic Review Urine Culture Comments Nasal Screen MRSA (PCR) Mrsa detected 01/01/18 01/01/18 04:06 07:15 WBC RBC Hgb Hct MCV MCH MCHC RDW Plt Count MPV Neut % (Auto) Lymph % (Auto) [place] % (Auto) Eos % (Auto) Baso % (Auto) Neut # (Auto) Lymph # (Auto) [place] # (Auto) Eos # (Auto) Baso # (Auto) WBC Differential Differential Comment PT INR APTT Puncture Site Right radial Patient Temperature 98.6 O2 Saturation 93 ABG pH 7.26 L* ABG pCO2 99 H* ABG pO2 77 ABG HCO3 43 H ABG O2 Content 15.7 ABG Base Excess 15.8 H ABG Methemoglobin 1.3 Randy Test Present Hemoglobin 12.0 Carboxyhemoglobin 1.4 O2 Delivery Device Bipap Liter Flow Vent Setting [id number] Inspired O2 40 Critical Value Yes Sodium Potassium Chloride Carbon Dioxide Anion Gap BUN Creatinine Estimated GFR Random Glucose Calcium Total Bilirubin AST ALT Alkaline Phosphatase Troponin I Cancelled B-Natriuretic Peptide Total Protein Albumin Urine Color Urine Clarity Urine pH Ur Specific [place] Urine Protein Urine Glucose (UA) Urine Ketones Urine Occult Blood Urine Nitrate Urine Bilirubin Urine Urobilinogen Ur Leukocyte Esterase Urine RBC Urine WBC Ur Squamous Epith Cells Hyaline Casts Urine Mucus Micro UA Comment Ur Microscopic Review Urine Culture Comments Nasal Screen MRSA (PCR) Result Diagrams: 12/31/17 18:45 12/31/17 18:45 Microbiology: Microbiology 12/31/17 18:40 Influenza Types A,B Antigen - Final Nasal Wash Negative for FLU A and B antigen Infection due to influenza A or B cannot be ruled out since the antigen present in the sample may be below the detection limit of the test. Imaging: Chest X-Ray 12/31/17 18:43 CONCLUSION: Hyperinflated lungs. Head CT 12/31/17 18:43 CONCLUSION: No acute intracranial abnormality is seen. . Chest CTA 01/01/18 00:08 CONCLUSION: 1. Negative for pulmonary embolus. 2. Severe emphysema. 3. Peribronchial thickening, especially at the lung bases with distal airway disease. Differential diagnosis includes chronic atypical mycobacterial disease. Patient/Family Conference Present at Family Conference: Spoke with patient, sister in a dual conference with Dr. Gray regarding prognosis and treatment options. Patient is emphatic that he will not accept life prolonging measures withdrawal from the BiPAP mask. He is requesting to be transitioned to 2 L nasal cannula. He states that morphine makes him agitated and belligerent and that his current dose of Xanax has been ineffective in controlling his symptoms. He is currently a patient of [facility] hospice and has declined transfer to the care center for withdrawal of respiratory support. He states he wishes to stay at the hospital. Consents for withdrawal of life support have been reviewed with patient and his sister and have been signed by the patient. . Family Conference Location: Bedside Issues Discussed: * Palliative care role, purpose, approach * Additional medical, psychosocial, and spiritual history * Patients general health, functional status, and cognitive changes in the months leading up to the current hospitalization * Patient/family understanding of the current medical problems * Patient/family understanding of prognosis * Patients goals of care as best understood from advance directives and/or conversations and/or values * Current medical treatment options and benefits/burdens of those options * Likely scenarios comparing ongoing aggressive care with a transition to comfort measures only * Questions answered to the best of my ability * Palliative care contact information provided Assessment and Plan - Disease Oriented Problem List (1) End stage COPD (2) Hypertension (3) Hypothyroidism (4) Respiratory failure - Symptom Scale (1) Dyspnea 0-10 Scale: 10 (2) Anxiety 0-10 Scale: 10 Pertinent Non-Medical Issues: Psychosocial: Single, 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 Originally from [place], he moved to [place] as a child, never , no children. 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 Ethical issues impacting care: None noted. . Important Contacts: Sister: Nelda Welsh Brother: Jadiel Welsh . Prognosis: His prognosis is poor. Even with maximal medical support, his disease is end- stage and even if he were to accept intubation, he would likely remain living on a ventilator, unable to be weaned. 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 He is requesting withdrawal of BiPAP mask which will likely lead to a terminal event. . Code Status: No Code DNR Plan: PLAN: Legal decision maker: Patient is capacitated for decision-making at this time. He does not have a healthcare surrogate, so by [place] statutes, his brother and sister would be his healthcare proxy's. Goals: Comfort. CODE STATUS: DO NOT RESUSCITATE, DO NOT INTUBATE SYMPTOMS: * Dyspnea: Severe with both hypercapnic and hypoxic failure. Requesting withdrawal of BiPAP support to 2 L nasal cannula O2 with comfort medications. Consents are signed after and extended review options and goals. * Anxiety: Concomitant with the dyspnea. He states the Xanax he has been receiving has not been effective in controlling his symptoms. He will be transitioned to Ativan for withdrawal from BiPAP. SUMMARY Is a 67-year-old male with end-stage COPD, history of heavy tobacco use as well as environmental exposure to paint and fiberglass dust. He is refusing aggressive interventions to prolong his life artificially and has requested withdrawal from the BiPAP mask today, with full knowledge that this will likely cause his . Pending withdrawal. Sister at bedside for support. Palliative care will continue to follow the patient during hospital course as condition evolves, to assist patient/decision-maker with understanding of their medical conditions, weighing benefits/burdens of treatment options, for clarification of goals of treatment. Additionally will assist with any symptoms of palliative concern. . Appreciation Thank you for the opportunity to participate in the care of Justin Welsh. Attestation Attestation: To help prompt me to consider important information that might be impacting today's encounter and assessment, information from prior notes written by myself or my colleagues may have been "brought forward" into today's note. My signature on this note, however, is an attestation that I personally performed the exam, history, and/or decision-making noted today, and, unless otherwise indicated, the interactions with patient, family, and staff as well as the review of records all occurred today. I also attest that the listed assessment and stated plan reflect my best clinical judgment today based on the combination of historical information, prior notes, and today's exam/ interactions. When time spent is documented, it refers only to time spent today by the signer, or if indicated, combined time spent today by collaborating physician/nurse practitioner. .
[2018-01-01] MEDS ORDERED: Acetaminophen 650 MG Supp RECTAL PRN (10:05)
[2018-01-01] MEDS ORDERED: fentaNYL Citrate Inj 100 MCG/2 ML Ampul IV.PUSH ONE ×2 (10:05)
[2018-01-01] MEDS ORDERED: Hyoscyamine Inj 0.5 MG/ML Ampul IV.PUSH PRN (10:05)
[2018-01-01] MEDS ORDERED: Hyoscyamine Liq Drops 0.125 MG/ML 15 ML Bottle SL ONE (10:05)
[2018-01-01] MEDS: fentaNYL Citrate Inj 100 MCG/2 ML Ampul IV.PUSH SCH ×4 (12:04→21:35)
--- NOTE | 2018-01-01 20:15 | ECG ---
Date Performed: 12/31/2017 Time Performed: 18:42:33 PTAGE: 67 years EKG: Multifocal atrial tachycardia ABNORMAL RHYTHM ECG PREVIOUS TRACING : 10/20/2014 01.11 Since the previous tracing, no significant change noted DOCTOR: Demetrius Amaya Interpretating Date/Time 01/01/2018 20:14:27
[2018-01-02] MEDS: fentaNYL Citrate Inj 100 MCG/2 ML Ampul IV.PUSH SCH ×9 (01:50→23:35)
--- NOTE | 2018-01-02 05:44 | XR ---
EXAM DATE: 01/02/2018 6:00 AM EDT AGE/SEX: 67 years / Male INDICATIONS: Shortness of breath. CLINICAL DATA: This is the patient's subsequent encounter. Patient reports that signs and symptoms h ave been present for 2 days and indicates a pain score of Nonresponsive. MEDICAL/SURGICAL HISTORY: Hypertension. Chronic obstructive pulmonary disease. Congestive hea rt failure. None. COMPARISON: [facility] [place], CHEST 1V SINGLE AP, 12/31/2017. . FINDINGS: Lungs are hyperinflated with underlying emphysema. No effusion. No pneumothorax. Heart size within no rmal limits. Parenchymal scarring in both lungs. CONCLUSION: Hyperinflation with emphysema and parenchymal scarring, stable. Heart size within normal limits. Electronically signed by: Akbar Roche MD 01/02/2018 5:43 AM EDT
--- NOTE | 2018-01-02 16:14 | P.PN ---
Subjective Interval history: Nursing denies any deterioration since last night. Nursing informed me that the patient's sister did not want hospice but she did want all comfort measures implemented, no heroic invasive procedures. Of note antibiotics and steroids have been discontinued prior to my evaluation of the patient. Physical Exam Vital signs: Vital Signs 01/01/18 19:15 01/01/18 20:00 01/01/18 22:00 Temperature 98.4 F 98.4 F Pulse Rate 72 72 72 Respiratory Rate 11 L 11 L Blood Pressure 145/66 H 145/66 H Pulse Oximetry 97 97 01/02/18 00:00 01/02/18 04:00 01/02/18 07:15 Temperature 98.4 F 98.2 F 98.6 F Pulse Rate 69 63 65 Respiratory Rate 12 9 L 10 L Blood Pressure 112/54 L 90/52 L 85/46 L Pulse Oximetry 97 99 100 01/02/18 08:00 01/02/18 12:00 Temperature 98.6 F 98.6 F Pulse Rate 66 59 L Respiratory Rate 10 L 9 L Blood Pressure 85/46 L 83/41 L Pulse Oximetry 100 99 Intake & Output 01/01/18 01/02/18 01/02/18 18:59 06:59 18:59 Intake Total 0 / 0 0 / 0 Output Total 0 / 0 0 / 0 Balance 0 / 0 0 / 0 Weight 47.3 kg Intake: Oral 0 / 0 0 / 0 Output: Urine 0 / 0 0 / 0 Other: # Voids 0 # Bowel Movements 0 0 Narrative: Patient on nasal cannula, shallow but slow breathing Results - Labs CBC & Chem 7: 12/31/17 18:45 12/31/17 18:45 - Imaging Impressions Chest X-Ray 01/02/18 06:00 CONCLUSION: Hyperinflation with emphysema and parenchymal scarring, stable. Heart size within normal limits. Assessment and Plan - Plan The 67-year-old white male admitted for acute respiratory failure/COPD exacerbation/sepsis. Patient was switched to comfort cares yesterday yet he was not transition over to hospice per the sister's request. I spoke to the sister to clarify exactly the goals of care and informed her that antibiotics and steroids that would combat his acute illness were indeed stopped yesterday. Sister informed me that she made arrangements for home for him already. Sister initially did not want hospice because her understanding was that hospice meant that the patient was left in a room by himself and not being checked upon, did not want him to wake up in a state of panic and then develop agonal breathing. She verbalized multiple times that she would like to keep him sedated calm and comfortable. She says that she is under a lot of stress because she is moving and that I am "stressing her out" with this information. I spent over 15 minutes with her on the phone and educated her that he can indeed be kept calm and sedated and closely monitored. She was open to the idea of the pt being kept on the hospice service with this description specifically in the hospital. I contacted the hospice nursing office and they have spoken with the sister who said that she will likely sign the consent forms tomorrow for hospice after ultimately agreeing to this. Respiratory failure - NC O2; not BIPAP and MV -Per sisters healthcare proxy, I will keep the patient on comfort measures only and keep him off of antibiotics. I informed her that he may pass away at any time including now. She verbalized understanding. Anxiety -Xanax per home regimen Depression -Mirtazapine Hypertension -Losartan Hypothyroidism -Levothyroxine Vitamin deficiency -Vitamin C p.o. DVT GI prophylaxis -Teds SCDs -Subcu Lovenox -Pepcid
[2018-01-03] MEDS: fentaNYL Citrate Inj 100 MCG/2 ML Ampul IV.PUSH SCH ×7 (02:03→21:32)
--- NOTE | 2018-01-03 13:51 | P.PN ---
Subjective Interval history: The patient is in bed he is with agonal breathing. Worse. Vital signs are stable. She is DNR. Family refusing hospice but want comfort measures. Family is refusing all aggressive treatments including IV medications Physical Exam Vital signs: Vital Signs 01/02/18 16:00 01/02/18 19:15 01/02/18 20:00 Temperature 97.6 F 97.2 F L 97.2 F L Pulse Rate 59 L 56 L 56 L Respiratory Rate 7 L 10 L 10 L Blood Pressure 78/42 L 78/40 L 78/40 L Pulse Oximetry 100 99 99 01/02/18 21:11 01/02/18 22:25 01/02/18 22:30 Temperature Pulse Rate 56 L Respiratory Rate Blood Pressure Pulse Oximetry 99 98 01/03/18 00:00 01/03/18 04:00 01/03/18 08:00 Temperature 97.4 F L 97.0 F L Pulse Rate 60 65 72 Respiratory Rate 13 14 20 Blood Pressure 85/45 L 74/42 L 77/42 L Pulse Oximetry 98 96 80 L 01/03/18 12:00 Temperature Pulse Rate 82 Respiratory Rate Blood Pressure Pulse Oximetry Intake & Output 01/02/18 01/03/18 01/03/18 18:59 06:59 18:59 Intake Total 0 / 0 Output Total 0 / 0 Balance 0 / 0 Weight 44 kg Intake: Oral 0 / 0 Output: Urine 0 / 0 Other: # Voids 0 # Bowel Movements 0 Narrative: Vital signs are stable Patient on nasal cannula, agonal breathing Results - Labs CBC & Chem 7: 12/31/17 18:45 12/31/17 18:45 Assessment and Plan - Plan The 67-year-old white male admitted for acute respiratory failure/COPD exacerbation/sepsis. Patient was switched to comfort cares 12/28 yet he was not transition over to hospice per the sister's request. I spoke to the sister to clarify exactly the goals of care and informed her that antibiotics and steroids that would combat his acute illness were indeed stopped yesterday. Sister initially did not want hospice because her understanding was that hospice meant that the patient was left in a room by himself and not being checked upon, did not want him to wake up in a state of panic and then developed agonal breathing. She verbalized multiple times that she would like to keep him sedated calm and comfortable. She says that she is under a lot of stress because she is moving and that I am "stressing her out" with this information. I spent over 15 minutes with her on the phone and educated her that he can indeed be kept calm and sedated and closely monitored. She was open to the idea of the pt being kept on the hospice service with this description specifically in the hospital. I contacted the hospice nursing office and they have spoken with the sister who said that she will likely signed the consent forms tomorrow for hospice after ultimately agreeing to this. Respiratory failure - NC O2; not BIPAP and MV -Per sisters healthcare proxy, I will keep the patient on comfort measures only and keep him off of antibiotics. I informed her that he may pass away at any time including now. She verbalized understanding. Anxiety -Xanax per home regimen Depression -Mirtazapine Hypertension -Losartan Hypothyroidism -Levothyroxine Vitamin deficiency -Vitamin C p.o. DVT GI prophylaxis -Teds SCDs -Subcu Lovenox -Pepcid Expect demise
[2018-01-03 18:00] VITALS: TEMP 97.6
[2018-01-03 21:02] VITALS: BP 48/28; PULSE 99; RESP 26; O2SAT 86
--- NOTE | 2018-01-04 17:22 | P.DS ---
Date of admission: 12/31/17 23:34 Primary care physician: Mahogany Riley MD Brief History from admission: 67-year-old male with a history of COPD, CHF, hypertension, anxiety, depression is brought to the emergency department from [facility] facility for evaluation of altered mental status and shortness of breath. Per EMS report [facility] staff called EMS with complaint of altered mental status. Per EMS report the patient's Xanax prescription dose was increased today and he has had increased lethargy and fatigue which is why the staff called. The patient is complaining of worsening shortness of breath over the past 3-4 days and he requested EMS to bring him to the hospital for evaluation. The patient is chronically on 3 L of oxygen therapy due to severe COPD. He does state that he is having worse shortness of breath than he typically does and feels dehydrated. He is awake, alert and oriented x4. He denies any chest pain, lightheadedness, dizziness, nausea, vomiting, swelling of the extremities , abdominal pain, fever, chills, cough or cold symptoms. No other complaints. DS: Diagnosis - Discharge Diagnosis (1) Hypercapnia Status: Acute (2) Acute respiratory acidosis Status: Acute (3) Anxiety Status: Acute (4) Dyspnea Status: Acute (5) End stage COPD Status: Acute (6) Hypertension Status: Acute (7) Hypothyroidism Status: Acute (8) Respiratory failure Status: Acute DS: Summary Hospital Course: The 67-year-old white male admitted for acute respiratory failure/COPD exacerbation/sepsis. Patient was switched to comfort cares 12/28 yet he was not transition over to hospice per the sister's request. I spoke to the sister to clarify exactly the goals of care and informed her that antibiotics and steroids that would combat his acute illness were indeed stopped yesterday. Sister initially did not want hospice because her understanding was that hospice meant that the patient was left in a room by himself and not being checked upon, did not want him to wake up in a state of panic and then developed agonal breathing. She verbalized multiple times that she would like to keep him sedated calm and comfortable. She says that she is under a lot of stress because she is moving and that I am "stressing her out" with this information. I spent over 15 minutes with her on the phone and educated her that he can indeed be kept calm and sedated and closely monitored. She was open to the idea of the pt being kept on the hospice service with this description specifically in the hospital. I contacted the hospice nursing office and they have spoken with the sister who said that she will likely signed the consent forms for hospice after ultimately agreeing to this. Patient however with agonal breathing and demise. Respiratory failure. End stage COPD Acute respiratory acidosis Hypercapnia - NC O2; not BIPAP and MV -Per sisters healthcare proxy, to keep the patient on comfort measures only and keep him off of antibiotics. I informed her that he may pass away at any time including now. She verbalized understanding. Anxiety -Xanax per home regimen Depression -Mirtazapine Hypertension -Losartan Hypothyroidism -Levothyroxine Vitamin deficiency -Vitamin C p.o. DVT GI prophylaxis -Teds SCDs -Subcu Lovenox -Pepcid Expected demise. Patient with agonal breathing. DNR status. Patient . - Time Spent with Patient Total time spent providing and/or coordinating discharge services: Greater than 30 minutes Exam Vital signs: Vital Signs 01/03/18 20:00 Pulse Rate 99 H Respiratory Rate 26 H Blood Pressure 48/28 L Pulse Oximetry 86 L Intake & Output 01/03/18 01/04/18 01/04/18 18:59 06:59 18:59 Intake Total 0 / 0 Balance 0 / 0 Intake: Oral 0 / 0 Other: # Urine Diapers 3 # Bowel Movements 0 Narrative: Vital signs are stable Patient on nasal cannula, agonal breathing Results Procedures completed during hospitalization: none - Impressions ITS Impressions Head CT 12/31/17 18:43 CONCLUSION: No acute intracranial abnormality is seen. . Chest CTA 01/01/18 00:08 CONCLUSION: 1. Negative for pulmonary embolus. 2. Severe emphysema. 3. Peribronchial thickening, especially at the lung bases with distal airway disease. Differential diagnosis includes chronic atypical mycobacterial disease. Chest X-Ray 01/02/18 06:00 CONCLUSION: Hyperinflation with emphysema and parenchymal scarring, stable. Heart size within normal limits. Discharge Plan - Discharge Disposition Patient Disposition: 50 Hospice/Home - Discharge Condition Condition: Stable - Physicians Team Primary Care Provider: Mahogany Riley Attending Provider: Zari Metz Other Providers: Johnathan Mann ; Duke Leslie MD
== END 2018-01-03 23:51 | disposition expired ==
LOC: NEPC 18:13 → NEDA 23:34 → N03 01-01 00:55 → N04 01-02 20:58
PROVIDERS: ADMIT Hospitalist; ATTEND Hospitalist